=== PATIENT | female | born 1950 | race Caucasian/White ===

== ENCOUNTER → 2024-06-20 08:56 | Outpatient (REF) | payer OTHER, MEDICARE, SELFPAY | LOC: RAD 08:56 | PROVIDERS: ATTENDING PHYSICIAN Nurse Practitioner Adult Health; FAMILY PHYSICIAN Physician Assistant | DX: D75.839 Thrombocytosis, unspecified (principal); E83.10 Disorder of iron metabolism, unspecified | CPT/HCPCS: 76700 ==

== ENCOUNTER → 2024-07-06 18:33 | Outpatient (REF) | payer OTHER, MEDICARE, SELFPAY | LOC: WDC 18:33 | PROVIDERS: ATTENDING PHYSICIAN Physician Assistant | DX: Z12.31 Encounter for screening mammogram for malignant neoplasm of breast (principal) | CPT/HCPCS: 77063; 77067 ==

== ENCOUNTER 2025-05-28 15:53 | Inpatient (IN) | payer OTHER, MEDICARE, SELFPAY ==
[2025-05-28] VITALS (8 sets, daily range): BP systolic 102–150; BP diastolic 46–78; BMI 27.3; BMI 26.0
--- NOTE | 2025-05-28 12:40 | ED.GENMED ---
History of Present Illness
<Joy Conway PA-C - Last Filed: 05/28/25 23:12>
General
Chief Complaint: Breathing Problem
Source: patient
Exam Limitations: none
Time Seen by Provider: 05/28/25 12:07
Nursing documentation reviewed up to this point in time: agreed with
History of Present Illness
History of Present Illness:
Patient is a 74-year-old female with history of type 2 diabetes on oral agents, hyperlipidemia who presents to the emergency department with exertional shortness of breath. Patient states she has been experiencing progressively worsening exertional
dyspnea over the past week. At first it seemed mild however now she is unable to walk very short distances without feeling extremely winded. She denies any associated chest or back pain. She does report very minimal dry cough. No fevers,
productive cough, hemoptysis. No lower extremity swelling or pain. She has not had any episodes of syncope
No history of similar symptoms.
She denies any recent travel or recent surgeries. No personal or family history of blood clots clotting disorders.
Review of Systems
<Joy Conway PA-C - Last Filed: 05/28/25 23:12>
Review of Systems
Allergies reviewed?: Yes
All Other Systems: ROS reviewed and negative except as documented in HPI and ROS
Phy Exam
<Joy Conway PA-C - Last Filed: 05/28/25 23:12>
Physical Exam
Physical Exam:
Vitals: Tachycardic on arrival. O2 91% on room air
General: Patient is laying in bed comfortably in no respiratory distress
Skin: Warm and dry, no rashes or lesions
Head: Normocephalic, atraumatic
Eyes: Sclera nonicteric.
Throat: Protecting airway
Neck: Normal ROM, no cervical spine tenderness, no meningismus
Cardiac: Regular rate and rhythm, no murmurs.
Pulm: Normal respiratory effort at rest. Lungs clear
Abdomen: Abdomen soft and nontender
Extremities: No evidence of cyanosis or edema. 2+ palpable DP pulses bilaterally
Neuro: AAOx3. Grossly intact.
Psychiatric: Normal affect.
Scores
<Joy Conway PA-C - Last Filed: 05/28/25 23:12>
Heart Failure Risk
Heart Failure Risk Score: Not Applicable
Course
<Joy Conway PA-C - Last Filed: 05/28/25 23:12>
Orders/Labs/Results
Orders:
Orders
05/28/25 Lunch
Cholesterol Lowering
At Your Request: Full Participation
Cholesterol Lowering: Sodium, 2 Gram
05/28/25 11:49
EKG [Electrocardiogram (*1)] Urgent
Reason for Study: Shortness of Breath
EKG- Treatment ONCE
05/28/25 12:12
CR Chest - 2 Views Urgent
Comment:
Reason For Exam: exertional SOB
05/28/25 12:39
COVID-19 Antigen Urgent
Source: Nasal Swab
Complete Blood Count/With Diff Urgent
Comprehensive Metabolic Panel Urgent
D-Dimer Urgent
NT-proBNP Urgent
PTT Urgent
Comment: ADDON
TSH Reflex To Free T4 Urgent
Comment: ADD ON
Troponin I Urgent
Influenza A+B Rapid Molecular Urgent
NICOLASA Source: Nasal Swab
Specimen Description:
05/28/25 12:52
Add On- LAB Urgent
Tests Added?: TSH w/ reflex to T4
05/28/25 13:06
CT Chest PE Study Urgent
Comment:
Reason For Exam: Exertional dyspnea, hypoxia
05/28/25 13:56
Electrocardiogram (*1) Urgent
Reason for Study: Shortness of Breath
EKG- Treatment ONCE
05/28/25 14:02
0.9% Sodium Chloride 1000 ml [Nss] 1,000 ml IV BOLUS
05/28/25 14:42
Heparin 6,000 units IV NOW STA
Nursing to Place Non Medication Order As Directed
Physician Order: PTT 6 hours after initial start of Heparin infusion
Above order entered?: Yes
05/28/25 14:45
Heparin 64541 Units/250 ml 25,000 units in 250 ml IV PER PROTOCOL
Weight to be used for heparin protocol in kilograms (kg):: 74.4
Protocol:: DVT/PE
PTT Goal Range to be used:: PTT 73 to 111 seconds
Order type:: Initial
INITIAL Infusion Dose (UNITS/KG/hr) & then follow protocol:: 18 units/kg/hr
Infusion Dose in UNITS/hr & then follow protocol (UNITS/hr):: 1,300
INFUSION RATE in mL/hr & then follow protocol (mL/hr):: 13
For DVT/PE algorithm, re-bolus for low PTT?: Yes
PTT less than or equal to 64 seconds:: Re-bolus 80 units/kg (max 10,000units). Increase by 300 units/hr
(+ 3mL/hr)
PTT 64.1 to 72.9 seconds:: Re-bolus 40 units/kg (max 5,000 units). Increase by 200 units/hr
(+ 2mL/hr)
PTT 73 to 111 seconds:: Target Range. No change in rate.
PTT 111.1 to 130.9 seconds:: Decrease rate by 200 units/hr (- 2 mL/hr)
PTT 131 to 199.9 seconds:: HOLD for 1 hr. Then decrease by 200 units/hr (- 2mL/hr)
PTT greater than or equal to 200 seconds:: HOLD for 2 hrs & Notify Provider. Then decrease by 300 units/hr
(- 3mL/hr)
Lab follow-up:: Each change, PTT q6h until 2 consecutive are therapeutic. Then
PTT daily.
05/28/25 15:02
Add On- LAB Urgent
Tests Added?: PTT
05/28/25 15:13
Heparin 6,000 units IV PRN PRN
05/28/25 15:14
Heparin 3,000 units IV PRN PRN
05/28/25 15:27
Admit/Transfer Patient As Directed
Co-Sign Provider:
Level of Care: Inpatient admission
Assign to:: IMU- Intermediate Care
Physician / Group: [email or web address]
Diagnosis: acute PE
Reason for Hospitalization: acute segmental distal PE, CT suggest RHS
Expected length of stay greater than two midnights?: Yes
ELOS- Estimated Length of Stay in days: 3
I certify the patient meets the requirements for IP care: Yes
05/28/25 15:29
Code Status As Directed
Resuscitation Status: Full Code
05/28/25 18:22
Acetaminophen [Tylenol] 650 mg PO Q6HPRN PRN mild pain
Polyethylene Glycol Powder [Miralax] 17 grams PO DAILYPRN PRN
Rosuvastatin Calcium [Crestor] 5 mg PO QPM
05/28/25 18:22
Echo 2D MMode Color/Doppler Routine
Reason for Study: pulmonary embolism
IRAD CONSULT Routine
Consulting Provider: Brendan Thomas
Was physician already notified: Yes
Procedure being ordered, including laterality if applicable: PERT alert
Acknowledgement that appropriate orders are entered: Yes
Local Operator Consult Routine
Consulting Provider: Hallie Reddy
Was physician already notified: Yes
Reason for consult: PERT alert
Activity As Directed
Activity Level: With Assistance
Activity As Directed
Activity Level: With Assistance
Bladder Scan As Directed
Follow Bladder Retention/Intermittent Cath Algorithm?: Yes
Frequency: Per Retention Algorithm
Comment: as per intermittent urinary catheter algorithm
Bladder Scan As Directed
Follow Bladder Retention/Intermittent Cath Algorithm?: Yes
Frequency: Per Retention Algorithm
Comment: as per intermittent urinary catheter algorithm
Bladder Scan As Directed
Follow Bladder Retention/Intermittent Cath Algorithm?: Yes
PRN if no void in __ hours: 6
Frequency: Per Retention Algorithm
If Bladder Scan Result >: 400
then:: Straight cath
Bladder Scan As Directed
Follow Bladder Retention/Intermittent Cath Algorithm?: Yes
PRN if no void in __ hours: 6
Frequency: Per Retention Algorithm
If Bladder Scan Result >: 400
then:: Straight cath
Intake/ Output As Directed
Frequency: Per unit guidelines
Intake/ Output As Directed
Frequency: Per unit guidelines
Straight Cath As Directed
Frequency: Per Retention Algorithm
Additional Instructions: as per intermittent urinary catheter algorithm
Straight Cath As Directed
Frequency: Per Retention Algorithm
Additional Instructions: as per intermittent urinary catheter algorithm
Straight Cath As Directed
Frequency: Per Retention Algorithm
Additional Instructions: straight cath as needed per acute urinary retention algorithm for 24 hrs
Additional Instructions: for bladder scan greater than 400 mL
Straight Cath As Directed
Frequency: Per Retention Algorithm
Additional Instructions: straight cath as needed per acute urinary retention algorithm for 24 hrs
Additional Instructions: for bladder scan greater than 400 mL
Vital Signs As Directed
Frequency: Per unit guidelines
Vital Signs As Directed
Frequency: Per unit guidelines
05/28/25 18:30
Fenofibrate 145 [Tricor] 145 mg PO QPM
05/28/25 18:39
Troponin I Routine
Comment: q6h till peak
05/28/25 21:44
PTT Urgent
Comment: 6 hour for heparin
05/29/25 08:00
Sertraline HCl [Zoloft] 50 mg PO DAILY
Abnormal Lab Results
05/28/25
12:39
Plt Count 465 H 10^3/uL
(130-400)
MPV 11.6 H fL
(7.4-10.4)
Absolute Lymphs (auto) 1.1 L 10^3/uL
(1.2-3.4)
Lymphocytes % 15.3 L %
(20.5-51.1)
D-Dimer 1.69 H ug/mlFEU
(0.00-0.50)
Glucose 119 H mg/dl
(70-99)
Troponin I 0.464 H* ng/ml
05/28/25 12:39
05/28/25 12:39
Vital Signs
Initial and Last Documented VS:
Initial Vital Signs
Temp Pulse Resp BP Pulse Ox
98.2 F 125 24 148/78 89
05/28/25 11:45 05/28/25 11:45 05/28/25 11:45 05/28/25 11:45 05/28/25 11:45
Last Documented Vital Signs
Temp Pulse Resp BP Pulse Ox
97.4 F 93 16 141/72 99
05/28/25 19:00 05/28/25 22:45 05/28/25 22:45 05/28/25 22:00 05/28/25 22:45
<Brenda Banks MD - Last Filed: 05/28/25 13:59>
Orders/Labs/Results
Orders:
Orders
05/28/25 Lunch
Cholesterol Lowering
At Your Request: Full Participation
Cholesterol Lowering: Sodium, 2 Gram
05/28/25 11:49
EKG [Electrocardiogram (*1)] Urgent
Reason for Study: Shortness of Breath
EKG- Treatment ONCE
05/28/25 12:12
CR Chest - 2 Views Urgent
Comment:
Reason For Exam: exertional SOB
05/28/25 12:39
COVID-19 Antigen Urgent
Source: Nasal Swab
Complete Blood Count/With Diff Urgent
Comprehensive Metabolic Panel Urgent
D-Dimer Urgent
NT-proBNP Urgent
PTT Urgent
Comment: ADDON
TSH Reflex To Free T4 Urgent
Comment: ADD ON
Troponin I Urgent
Influenza A+B Rapid Molecular Urgent
NICOLASA Source: Nasal Swab
Specimen Description:
05/28/25 12:52
Add On- LAB Urgent
Tests Added?: TSH w/ reflex to T4
05/28/25 13:06
CT Chest PE Study Urgent
Comment:
Reason For Exam: Exertional dyspnea, hypoxia
05/28/25 13:56
Electrocardiogram (*1) Urgent
Reason for Study: Shortness of Breath
EKG- Treatment ONCE
05/28/25 14:02
0.9% Sodium Chloride 1000 ml [Nss] 1,000 ml IV BOLUS
05/28/25 14:42
Heparin 6,000 units IV NOW STA
Nursing to Place Non Medication Order As Directed
Physician Order: PTT 6 hours after initial start of Heparin infusion
Above order entered?: Yes
05/28/25 14:45
Heparin 22202 Units/250 ml 25,000 units in 250 ml IV PER PROTOCOL
Weight to be used for heparin protocol in kilograms (kg):: 74.4
Protocol:: DVT/PE
PTT Goal Range to be used:: PTT 73 to 111 seconds
Order type:: Initial
INITIAL Infusion Dose (UNITS/KG/hr) & then follow protocol:: 18 units/kg/hr
Infusion Dose in UNITS/hr & then follow protocol (UNITS/hr):: 1,300
INFUSION RATE in mL/hr & then follow protocol (mL/hr):: 13
For DVT/PE algorithm, re-bolus for low PTT?: Yes
PTT less than or equal to 64 seconds:: Re-bolus 80 units/kg (max 10,000units). Increase by 300 units/hr
(+ 3mL/hr)
PTT 64.1 to 72.9 seconds:: Re-bolus 40 units/kg (max 5,000 units). Increase by 200 units/hr
(+ 2mL/hr)
PTT 73 to 111 seconds:: Target Range. No change in rate.
PTT 111.1 to 130.9 seconds:: Decrease rate by 200 units/hr (- 2 mL/hr)
PTT 131 to 199.9 seconds:: HOLD for 1 hr. Then decrease by 200 units/hr (- 2mL/hr)
PTT greater than or equal to 200 seconds:: HOLD for 2 hrs & Notify Provider. Then decrease by 300 units/hr
(- 3mL/hr)
Lab follow-up:: Each change, PTT q6h until 2 consecutive are therapeutic. Then
PTT daily.
05/28/25 15:02
Add On- LAB Urgent
Tests Added?: PTT
05/28/25 15:13
Heparin 6,000 units IV PRN PRN
05/28/25 15:14
Heparin 3,000 units IV PRN PRN
05/28/25 15:27
Admit/Transfer Patient As Directed
Co-Sign Provider:
Level of Care: Inpatient admission
Assign to:: IMU- Intermediate Care
Physician / Group: [email or web address]
Diagnosis: acute PE
Reason for Hospitalization: acute segmental distal PE, CT suggest RHS
Expected length of stay greater than two midnights?: Yes
ELOS- Estimated Length of Stay in days: 3
I certify the patient meets the requirements for IP care: Yes
05/28/25 15:29
Code Status As Directed
Resuscitation Status: Full Code
05/28/25 18:22
Acetaminophen [Tylenol] 650 mg PO Q6HPRN PRN mild pain
Polyethylene Glycol Powder [Miralax] 17 grams PO DAILYPRN PRN
Rosuvastatin Calcium [Crestor] 5 mg PO QPM
05/28/25 18:22
Echo 2D MMode Color/Doppler Routine
Reason for Study: pulmonary embolism
IRAD CONSULT Routine
Consulting Provider: Brendan Thomas
Was physician already notified: Yes
Procedure being ordered, including laterality if applicable: PERT alert
Acknowledgement that appropriate orders are entered: Yes
Local Operator Consult Routine
Consulting Provider: Hallie Reddy
Was physician already notified: Yes
Reason for consult: PERT alert
Activity As Directed
Activity Level: With Assistance
Activity As Directed
Activity Level: With Assistance
Bladder Scan As Directed
Follow Bladder Retention/Intermittent Cath Algorithm?: Yes
Frequency: Per Retention Algorithm
Comment: as per intermittent urinary catheter algorithm
Bladder Scan As Directed
Follow Bladder Retention/Intermittent Cath Algorithm?: Yes
Frequency: Per Retention Algorithm
Comment: as per intermittent urinary catheter algorithm
Bladder Scan As Directed
Follow Bladder Retention/Intermittent Cath Algorithm?: Yes
PRN if no void in __ hours: 6
Frequency: Per Retention Algorithm
If Bladder Scan Result >: 400
then:: Straight cath
Bladder Scan As Directed
Follow Bladder Retention/Intermittent Cath Algorithm?: Yes
PRN if no void in __ hours: 6
Frequency: Per Retention Algorithm
If Bladder Scan Result >: 400
then:: Straight cath
Intake/ Output As Directed
Frequency: Per unit guidelines
Intake/ Output As Directed
Frequency: Per unit guidelines
Straight Cath As Directed
Frequency: Per Retention Algorithm
Additional Instructions: as per intermittent urinary catheter algorithm
Straight Cath As Directed
Frequency: Per Retention Algorithm
Additional Instructions: as per intermittent urinary catheter algorithm
Straight Cath As Directed
Frequency: Per Retention Algorithm
Additional Instructions: straight cath as needed per acute urinary retention algorithm for 24 hrs
Additional Instructions: for bladder scan greater than 400 mL
Straight Cath As Directed
Frequency: Per Retention Algorithm
Additional Instructions: straight cath as needed per acute urinary retention algorithm for 24 hrs
Additional Instructions: for bladder scan greater than 400 mL
Vital Signs As Directed
Frequency: Per unit guidelines
Vital Signs As Directed
Frequency: Per unit guidelines
05/28/25 18:30
Fenofibrate 145 [Tricor] 145 mg PO QPM
05/28/25 18:39
Troponin I Routine
Comment: q6h till peak
05/28/25 21:44
PTT Urgent
Comment: 6 hour for heparin
05/29/25 08:00
Sertraline HCl [Zoloft] 50 mg PO DAILY
Abnormal Lab Results
05/28/25
12:39
Plt Count 465 H 10^3/uL
(130-400)
MPV 11.6 H fL
(7.4-10.4)
Absolute Lymphs (auto) 1.1 L 10^3/uL
(1.2-3.4)
Lymphocytes % 15.3 L %
(20.5-51.1)
D-Dimer 1.69 H ug/mlFEU
(0.00-0.50)
Glucose 119 H mg/dl
(70-99)
Troponin I 0.464 H* ng/ml
05/28/25 12:39
05/28/25 12:39
Vital Signs
Initial and Last Documented VS:
Initial Vital Signs
Temp Pulse Resp BP Pulse Ox
98.2 F 125 24 148/78 89
05/28/25 11:45 05/28/25 11:45 05/28/25 11:45 05/28/25 11:45 05/28/25 11:45
Last Documented Vital Signs
Temp Pulse Resp BP Pulse Ox
97.4 F 93 16 141/72 99
05/28/25 19:00 05/28/25 22:45 05/28/25 22:45 05/28/25 22:00 05/28/25 22:45
<Joy Conway PA-C - Last Filed: 05/28/25 23:12>
MDM/Problems Addressed
Differential Diagnosis Includes:
Not limited to: Congestive heart failure, acute coronary syndrome, pulmonary embolism, pleural effusion, pneumothorax, viral illness, anemia, malignancy, etc.
MDM/Problems Addressed:
74-year-old female with one week of exertional dyspnea. No associated exertional chest pain, fever, or productive cough. Patient is tachycardic, hypoxic on arrival however normotensive. On exam, she appears in no distress at rest. Her lungs are
clear. No pitting edema or evidence of DVT on exam.
Differential as above. Will check basic labs, cardiac enzymes, pro-BNP. Will check d-dimer and chest x-ray. Will check viral studies.
Her EKG reveals sinus tachycardia without evidence of acute ischemic changes.
Update: basic labs unremarkable. Her hemoglobin is normal. Her d-dimer is elevated, as well as troponin. Patient was immediately sent for a CT PE study.
Update: CT PE study reveals extensive bilateral pulmonary emboli with associated right heart strain.
A PERT alert was called.
Patient started on heparin bolus/drip in emergency department. She remains borderline tachycardic on 3 L supplemental O2. Her blood pressure has remained stable.
Patient will require admission for further management. She was accepted to the hospital service. Both pulmonology and interventional radiology aware.
Chronic conditions affecting care:
N/A
Acute Exacerbation and/or Progression of Chronic Illness:
N/A
<Joy Conway PA-C - Last Filed: 05/28/25 23:12>
*Radiology
Radiology exam reviewed: radiology read reviewed
*Pulse Oximetry
SaO2: 89
Oxygen Mode of Delivery: Room air
Patient hypoxic: yes
*EKG
Interpreted by ED Provider?: Yes
EKG Intrepretation Date: 05/28/25
Interpretation: abnormal
Comparison EKG: no comparison EKG present
Heart Rate: 114
Rate: tachycardiac
Rhythm: sinus
Twining: normal axis
Interval: normal QT interval
QRS Pattern: normal QRS
Ischemia: no ischemia
*Production Supply Equipment Tender Interpretation
Rate: tachycardiac
Interpretation: abnormal
Heart Rate: 107
Rhythm: sinus
*Critical Care Note
Total Time (30-74mins, 75-104mins- exclusive of procedures): 35
comment:
Critical care statement: A total of 35 minutes of critical care time was provided for this patient. This includes management of unstable vital signs, evaluation of the patient at bedside, reviewing the patient's pertinent medical records, discussion
with consultants, review of old EKGs and review of pertinent medical records. This time with separate from time utilized to perform the aforementioned documented procedures
<Joy Conway PA-C - Last Filed: 05/28/25 23:12>
Patient Management
Discussion with other providers: Hospitalist, Atomic Physics Teacher (Case discussed with pulmonology and interventional radiology) and Radiologist
ED Attending Note
<Joy Conway PA-C - Last Filed: 05/28/25 23:12>
-
Portions of this chart may have been created with voice recognition software.� Occasional wrong word or��sound alike� substitutions may have occurred due to the inherent limitations of voice recognition software.
<Brenda Banks MD - Last Filed: 05/28/25 13:59>
ED Attending Note
Patient seen and examined by attending physician: Yes
I performed the substantive portion of visit, reviewed & personally made and approve the management plan that is documented in note by myself or RAVINDER.: Yes
ED Attending Note:
Patient evaluated by me after she got up to go the bathroom. Patient is visibly tachypneic and slightly clammy. She is fully awake alert and speaking in full sentences, however. Her lungs are completely clear. Patient has no edema. Clinical
picture is concerning for possible PE given elevated D-dimer, elevated troponin, without chest pain, and tachycardia.
Discharge Plan
Departure
Patient Disposition: Admit
Date of Disposition: 05/28/25
Time of Disposition: 14:43
Presentation/result/management discussed w/ accepting MD/DO: Hospitalist
Discharge Problem:
Bilateral pulmonary embolism
Interventions
Interventions:
*Risk Screen - Suicide Last Done: 05/28/25 11:45
*General Assessment Last Done: 05/28/25 11:45
*Neglect/Abuse Screening Last Done: 05/28/25 11:45
*ED COVID-19 Vaccine History Last Done: 05/28/25 12:27
*ED Influenza Vaccine History Last Done: 05/28/25 12:27
[facility] Fall Risk Assessment Tool Last Done: 05/28/25 13:29
*Nursing Disposition Last Done: 05/28/25 18:10
ED- Cardiac Assessment Last Done: 05/28/25 12:27
ED- Pulmonary Assessment Last Done: 05/28/25 17:28
Discharge Date and Time
Discharge Date/Time: 05/28/25 18:10
[2025-05-28 12:56] LABS: Hematocrit 39.6 % (37.0-47.0); Hemoglobin 13.4 g/dL (12.0-16.0); Mean Corp Hgb Conc. 33.8 g/dL (33.0-37.0); Mean Corpuscular Volume 87.8 fL (81.0-99.0); Nucleated Red Blood Cells % 0 %; Platelet Count 465 10^3/uL (130-400); Red Cell Dist. Width 13.3 % (11.5-14.5)
[2025-05-28 13:02] LABS: D-Dimer 1.69 ug/mlFEU (0.00-0.50)
[2025-05-28 13:04] LABS: ALT (SGPT) 18 U/L (0-35); AST (SGOT) 24 U/L (14-36); Albumin 4.1 g/dl (3.5-5.0); Alkaline Phosphatase 40 U/L (38-126); Blood Urea Nitrogen 16 mg/dl (7-17); Calcium 9.4 mg/dl (8.4-10.2); Carbon Dioxide 25 mmol/L (22-30); Chloride 106 mmol/L (98-107); Estimated Creatinine Clearance 63 ml/min; Glucose 119 mg/dl (70-99); Potassium 4.3 mmol/L (3.5-5.1); Sodium 137 mmol/L (135-145); Total Protein 6.5 g/dl (6.3-8.2); eGFR > 60.00
[2025-05-28 13:16] LABS: COVID-19 Antigen Negative (Negative)
[2025-05-28 13:17] LABS: Troponin I 0.464 ng/ml
[2025-05-28] MEDS: NSS 1000 IV (14:25)
--- NOTE | 2025-05-28 15:06 | CON.PUL ---
Consultation
Consultation Request
Date/Time Consultation Requested: 05/28/25
Date/Time Consultation Performed: 05/28/25
Performing Provider: Maureen
Reason for Consultation: PE
Medical History
-
History of Present Illness:
Patient is a 74-year-old female with previous history of diabetes, hyperlipidemia presenting with exertional shortness of breath over the past week. She has had progressive decline in her function, ambulation distance. She had noted left lower
extremity knee swelling and pain several weeks prior to admission. 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
CT demonstrating bilateral segmental PE. She is evaluated via PERT alert and not deemed a candidate for catheter directed therapy or thrombectomy. She will be admitted to IMU and is on a heparin drip.
Denies any prior known history of lung disease, former smoker quit in her 40s. Denies any family history of lung disease or VTE.
Past Medical History
Past Medical History: Other (see list below)
Social History
Tobacco: Former Smoker
Alcohol: None
Drug: None
Allergies / Home Medications
Allergies
Allergy/AdvReac Type Severity Reaction Status Date / Time
No Known Allergies Allergy Unverified 05/28/25 11:48
Home Medications
�Medication �Instructions �Recorded �Confirmed �Last Taken �Type
acetaminophen 325 mg tablet 650 mg PO Q6HPRN PRN mild pain 05/28/25 05/28/25 05/27/25 History
(Tylenol)
calcium carbonate 500 mg PO DAILY Supplement 05/28/25 05/28/25 05/27/25 History
cholecalciferol (vitamin D3) 25 25 mcg PO DAILY Supplement 05/28/25 05/28/25 05/27/25 History
mcg (1,000 unit) tablet (Vitamin
D3)
fenofibric acid (choline) 135 mg 135 mg PO QPM High Cholesterol 05/28/25 05/28/25 05/27/25 History
capsule,delayed release
metformin 500 mg tablet 500 mg PO BID Diabetes 05/28/25 05/28/25 05/28/25 History
omega 8-mqn-hcy-fish oil 1,000 mg 1 cap PO DAILY Supplement 05/28/25 05/28/25 05/27/25 History
(120 mg-180 mg) capsule (Fish Oil)
rosuvastatin 5 mg tablet (Crestor) 5 mg PO QPM High Cholesterol 05/28/25 05/28/25 05/27/25 History
sertraline 50 mg tablet 50 mg PO DAILY Mental 05/28/25 05/28/25 05/28/25 History
Health/Anxiety
therapeutic multivitamin 1 tab PO DAILY Supplement 05/28/25 05/28/25 05/27/25 History
Review of Systems
-
History Source: Patient
All other systems: Negative unless noted
Vitals / Labs / Diagnostic Testing
Vital Signs
Temp Pulse Resp BP Pulse Ox
98.2 F 109 18 148/78 93
05/28/25 11:45 05/28/25 13:30 05/28/25 13:30 05/28/25 11:45 05/28/25 13:30
Lab Data
05/28/25 12:39
05/28/25 12:39
Microbiology
05/28/25 12:39 Nasal Swab Influenza Types A & B ([facility]ON) - Final
Negative for Influenza A & B, NAAT
Negative results must be combined with clinical observations
and patient history.
Nucleic Acid Amplification test (NAAT)performed on the
[employer] ID NOW platform.
Diagnostic Testing:
Physical Exam
-
HEENT: Normocephalic, Anicteric and Moist Mucous Membranes
Cardiovascular: S1/S2 and Regular Rhythm
Respiratory: Clear and Non-Labored Respirations
GI: Soft, Non Distended and Non Tender
Neurology: Awake, Alert, Oriented and No Motor Deficits
Skin: Warm, Dry and Good Color
General: Comfortable and Other (NAD)
Assessment
-
Patient is a 74-year-old female with previous history of diabetes, hyperlipidemia presenting with exertional shortness of breath over the past week. She has had progressive decline in her function, ambulation distance. She had noted left lower
extremity knee swelling and pain several weeks prior to admission. 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
CT demonstrating bilateral segmental PE. She is evaluated via PERT alert and not deemed a candidate for catheter directed therapy or thrombectomy. She will be admitted to IMU and is on a heparin drip. We are consulted for evaluation.
Acute bilateral PE, likely provoked
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
Elevated troponin
Sinus tachycardia, mild
Conditions present prior to admission
Former smoker, half pack per day for 24 years quit in her 40s
Hyperlipidemia
Prediabetic
Mini eye stroke
Overweight
Eczema
Plan
No significant hypoxemia noted on arrival, O2 lissette 92%
She is placed on supplemental oxygen which can likely be weaned to off
Denies any prior known history of lung disease, former smoker quit in her 40s.
Denies any family history of lung disease or VTE.
CXR/CT obtained indicating bilateral segmental PE
She is placed on IV heparin
PERT alert called without need for intervention
Denies prior history of VTE
This is likely provoked based on her history
We discussed treatment of PE and long-term anticoagulation
Given lower extremity swelling, will obtain left lower extremity duplex
Given elevated troponin and tachycardia, will obtain echo
Can monitor on telemetry otherwise
Smoking history noted--former, quit over 30 years ago
She could be at risk for lung disease but is not at risk for lung malignancy
Will need outpatient pulmonary evaluation in our office for PFTs and 6MWT
Reviewed with patient
This can be done at discharge
Reviewed plan of care with patient and her daughter at bedside
We will follow
Diagnostic Data
Chest X-Ray: 05/28/25-No acute cardiopulmonary process.
CT Scan: CHEST 05/28/25-There is extensive pulmonary embolism involving all bilateral lobar and most segmental pulmonary arteries and bilateral lower lobe subsegmental pulmonary arteries. Pulmonary embolism also extends into the distal aspect of the
right main pulmonary artery.
Branching Order Level of the Most Proximal Level of Pulmonary Embolus: Main pulmonary artery.
Echo:
PFT's:
Reports and relevant images were personally reviewed.
Total time spent on this consultation __55__ minutes which includes review of history, physical exam, medications, laboratory data, personal review of imaging, extensive review of outpatient records, discussion with care team and respiratory therapy.
--- NOTE | 2025-05-28 15:09 | HPS.HSE ---
Family Physician
-
Family Physician: Sinai Zuleta
Chief Complaint
-
exertional shortness of breath
History of Present Illness
73F
PMHX: T2DM, hyperlipidemia seen at ER
- pw exertional shortness of breath- progressively worsening over the past week.
- now she is unable to walk very short distances without feeling extremely winded.
- denies any associated chest or back pain. She does report very minimal dry cough. No fevers, productive cough, hemoptysis. No lower extremity swelling or pain. She has not had any episodes of syncope
No history of similar symptoms.
She denies any recent travel or recent surgeries. No personal or family history of blood clots clotting d
Medical History
Past Medical History
Past Medical History: Reports Hypercholesterolemia and Psychiatric (anxiety )
Past Surgical History: Reports Other
Social History
Tobacco: Non-smoker
Alcohol: None
Living: With Family
Family History
Family History: Not pertinent
Allergies / Home Medications
Allergies reflects when Allergies were last updated in [facility].
Home Medications with original date entered in [facility]
Allergy/Medication List:
Allergies
Allergy/AdvReac Type Severity Reaction Status Date / Time
No Known Allergies Allergy Unverified 05/28/25 11:48
Home Medications
acetaminophen 325 mg tablet (Tylenol) 650 mg PO Q6HPRN PRN mild pain 05/28/25
calcium carbonate 500 mg PO DAILY Supplement 05/28/25
cholecalciferol (vitamin D3) 25 mcg (1,000 unit) tablet (Vitamin D3) 25 mcg PO DAILY Supplement 05/28/25
fenofibric acid (choline) 135 mg capsule,delayed release 135 mg PO QPM High Cholesterol 05/28/25
metformin 500 mg tablet 500 mg PO BID Diabetes 05/28/25
omega 9-tgt-fqn-fish oil 1,000 mg (120 mg-180 mg) capsule (Fish Oil) 1 cap PO DAILY Supplement 05/28/25
rosuvastatin 5 mg tablet (Crestor) 5 mg PO QPM High Cholesterol 05/28/25
sertraline 50 mg tablet 50 mg PO DAILY Mental Health/Anxiety 05/28/25
therapeutic multivitamin 1 tab PO DAILY Supplement 05/28/25
Review of Systems
-
Constitutional: Reports No Symptoms
EENT: Reports No Symptoms
Respiratory: Reports See HPI and Trouble Breathing
Cardiac: Reports No Symptoms
Abdomen/GI: Reports No Symptoms
: Reports No Symptoms
Musculoskeletal: Reports No Symptoms
Skin: Reports No Symptoms
Neurological: Reports No Symptoms
Endocrine: Reports No Symptoms
Hematologic/Lymphatic: Reports No Symptoms
Psych: Reports No Symptoms
Physical Exam
Vital Signs
Vital Signs
Temp Pulse Resp BP Pulse Ox
98.2 F 109 18 148/78 93
05/28/25 11:45 05/28/25 13:30 05/28/25 13:30 05/28/25 11:45 05/28/25 13:30
Physical Exam
General: Well Developed, Well Nourished and No Apparent Distress
HEENT: NormoCephalic, Moist mucous membranes and Atraumatic
Respiratory: Clear
Cardiac: S1/S2 and Regular Rhythm; No Murmur or Rub
GI: Soft, Non Tender, Non Distended and Normal Bowel Sounds; No Organomegaly
Rectal: Deferred by Provider
Musculoskeletal: No Clubbing, No Cyanosis and No Edema
Skin: No Rash
Neuro: Nonfocal/grossly intact
Laboratory Results
-
05/28/25 12:39
05/28/25 12:39
Laboratory Results
Total Bilirubin 0.4 mg/dl (0.2-1.3) 05/28/25 12:39
AST 24 U/L (14-36) 05/28/25 12:39
ALT 18 U/L (0-35) 12/07/25 12:39
Alkaline Phosphatase 40 U/L (38-126) 05/28/25 12:39
Troponin I 0.464 ng/ml H* 05/28/25 12:39
Data Reviewed
-
CT Scan: Report Reviewed by me
Medical Tests (Nuc Med, Echo, EKG etc): Report Reviewed by me
Lab Data: Labs Reviewed by me
Impression/Plan
-
Vital Signs
Temp Pulse Resp BP Pulse Ox
98.2 F 109 18 148/78 93
05/28/25 11:45 05/28/25 13:30 05/28/25 13:30 05/28/25 11:45 05/28/25 13:30
Labs
05/28/25 05/28/25
12:39 14:42
WBC 7.3
Hgb 13.4
Plt Count 465 H
APTT Pending
D-Dimer 1.69 H
Creatinine 0.8
eGFR > 60.00
Troponin I 0.464 H*
Vsf-B-Jaxchxgegar Pept 301
EKG
SINUS TACHYCARDIA
OTHERWISE NORMAL ECG
WHEN COMPARED WITH ECG OF 28-May-2025 11:54,
NO SIGNIFICANT CHANGE WAS FOUND
[facility] PE protocol
1. Extensive bilateral pulmonary emboli.
2. CT evidence suggestive of right heart strain.
CXR
No acute cardiopulmonary process.
NO PRIOR hospitalist admission:
ASSESSMENT & PLAN
PERT alert for Acute extensive bilateral PE - segmental and too distal per Pul & IR
Provoked PE due to sedentary life style
CTC suggest RHS - associated ST , elevated DD
- Not IR candidate for thrombectomy
- Heparin gtt
- ECHO in AM
- IMU
- Pul and IR consulted
Elevated TPNI due to NIMI due to acute PE
- Trend TPNI
- await TTE evaluation
T2DM
- hold Metformin
- add ISS low
HLD
- on CANDY PACKER Crestor and Choline
Anxiety /Depression
- on CANDY PACKER Sertraline
DVT Px: Heparin gtt
Full code
IMU
[2025-05-28] MEDS: HEPARIN 25000 UNITS/250 ML IV (15:20)
[2025-05-28] MEDS: HEPARIN 6000 UNITS IV (15:21)
[2025-05-28 15:24] LABS: APTT 26.2 Sec (23.4-35.0)
--- NOTE | 2025-05-28 15:54 | CM ---
Chart reviewed and spoke with patient at ED bedside
[facility]
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
Independent
no DME
PCP Dr. Sinai Zuleta
[facility] in [place]
no hx VN nor SNF
DCP is to go home
Dtr can drive
CM will continue to follow up for any dcp needs
[2025-05-28] MEDS: TRICOR 145 MG PO (19:05)
[2025-05-28] MEDS: CRESTOR 5 MG PO (19:05)
[2025-05-28 19:09] LABS: Troponin I 1.570 ng/ml
--- NOTE | 2025-05-28 19:09 | PTCARENOTE ---
Pt arrived to unit from ED via stretcher. Stood to transfer to admitted rooms bed. AAOx3. Stating chronic 3/10 pain in left knee. SaO2 98% on 4L NC. Diminished breath sounds. Sinus tach on panel monitor. HR 100s. BP 150/69. +1 left knee edema,
B/L trace LE edema. Abdomen obese. (+) bowel sounds. Heparin gtt infusing @ 1300 units/hr. Troponin drawn and sent.
[2025-05-28 19:12] LABS: Glucose - Point of Care 119 mg/dl (70-99)
[2025-05-28 22:01] LABS: APTT 97.4 Sec (23.4-35.0)
[2025-05-29] VITALS (9 sets, daily range): BP systolic 103–151; BP diastolic 44–113
[2025-05-29 01:20] LABS: Troponin I 1.020 ng/ml
[2025-05-29 05:24] LABS: APTT 96.1 Sec (23.4-35.0)
--- NOTE | 2025-05-29 05:29 | PTCARENOTE ---
Received pt at change of shift. Family at bedside. Remains on NC at 4L with pulse ox in the mid to high 90s. Lungs CTA but diminished throughout. Heparin gtt running at 1300 units/hr. PTT x2 therapeutic. Order placed for PTT check on Thursday
morning. Resting in bed with call henley in reach.
[2025-05-29] MEDS: ZOLOFT 50 MG PO (07:39)
--- NOTE | 2025-05-29 08:10 | W.PN.HOSP.TC ---
Addendum entered and electronically signed by Sivakumar Guzmán DO 05/29/25 13:22:
Patient is in need of oxygen at 4 liters/minute via nasal cannula continuously due to pulse oximetry of 87% on room air at rest. Oxygen will help to improve hypoxemia. Patient is mobile within the home. DuoNeb therapy has been tried and is
ineffective in treating hypoxemia related symptoms. Oxygen is needed to improve symptoms.
Original Note:
Today's Communication/Plan
-
Transition to Eliquis
Echocardiogram
Check ambulatory pulse ox on room air
Assessment / Plan
Assessment / Plan
Gen-AAOx3, NAD
HEENT-NC, AT, anicteric, clear oral mm
Neck-supple
CV-reg, no M, +S1/S2
Lungs-clear B/L
Abd-soft, NT, ND
Ext-no edema
Musculoskeletal-no cyanosis, clubbing
Skin-warm and dry
Neuro-grossly non-focal
Psych-calm, cooperative
Acute hypoxic respiratory failure -due to bilateral pulmonary emboli. Currently on 4 L nasal cannula oxygen. Wean down as able.
Check ambulatory pulse ox on room air.
Acute bilateral pulmonary emboli -complicated by right heart strain. Elevated troponin.
Echocardiogram pending. Hemodynamically stable.
Left lower extremity venous Doppler ultrasound negative for DVT.
She states she is up-to-date on cancer screenings. Follows up with [facility], sees Dr. Conner for thrombocytosis. Current platelet count 465k.
Transition from IV heparin to Eliquis. Case management to look into cost.
DM 2 without hyperglycemia -hold metformin x 48 hrs given contrast exposure.
Check hemoglobin A1c.
Use low resistance NovoLog scale.
Former smoker
Hyperlipidemia -rosuvastatin.
Anxiety/depression -sertraline.
Full code
Dispo -potential discharge home later today if hemodynamically stable. Await echocardiogram. Await ambulatory pulse ox on room air.
Anticipated Discharge: Today
Subjective/Interval History
-
Date of Service: May 29, 2025
Patient seen and examined. Complaining of mild dyspnea and palpitations on exertion.
Objective Data
-
Labs:
Laboratory Results
05/28/25 05/29/25
21:44 05:03
APTT 97.4 H 96.1 H
Vital Signs:
Vital Signs
Temp Pulse Resp BP Pulse Ox
98.2 F 86 15 124/44 99
05/29/25 08:00 05/29/25 04:00 05/29/25 04:00 05/29/25 04:00 05/29/25 04:00
Review of Systems
-
History Source: Patient
All other systems: Reviewed and negative
[2025-05-29] MEDS: ELIQUIS 10 MG PO ×2 (08:39→20:27)
--- NOTE | 2025-05-29 08:47 | PTCARENOTE ---
pt aaox3. on 4lnc o2 sat 99%. states breathing feels better pt still bald[place]. able to walk to bathroom and do morning cares self. heparin gtt dc'd by MD. Evans given. pt on room air 86% for home o2 testing.
--- NOTE | 2025-05-29 08:49 | W.PN.PUL.V3 ---
Today's Communication / Plan
-
heparin drip-convert Eliquis
Assessment disorders or blood clots. She needs.
Outpatient pulmonary follow-up
Assessment
-
Patient is a 74-year-old female with previous history of diabetes, hyperlipidemia presenting with exertional shortness of breath over the past week. She has had progressive decline in her function, ambulation distance. She had noted left lower
extremity knee swelling and pain several weeks prior to admission. 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
CT demonstrating bilateral segmental PE. She is evaluated via PERT alert and not deemed a candidate for catheter directed therapy or thrombectomy. She will be admitted to IMU and is on a heparin drip. We are consulted for evaluation.
Acute bilateral PE, likely provoked
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
Elevated troponin
Sinus tachycardia, mild
Conditions present prior to admission:
Former smoker, half pack per day for 24 years quit in her 40s
Hyperlipidemia
Prediabetic
Mini eye stroke
Overweight
Eczema
Plan
Respiratory status slowly improving.
Wean supplemental option.
Assessment is just supplemental oxygen needs.
Nebulizers if needed-currently not bronchospastic.
Denies any prior known history of lung disease, former smoker quit in her 40s.
Denies any family history of lung disease or VTE.
CXR/CT obtained indicating bilateral segmental PE.
Heparin drip-convert to Eliquis
Eliquis for 3-6 months
PERT alert called without need for intervention
Denies prior history of VTE
This is likely provoked based on her history
We discussed treatment of PE and long-term anticoagulation
Echocardiogram pending
Given lower extremity swelling, will obtain left lower extremity duplex-ultrasound 05/28/25-no evidence for DVT in left lower extremity
Smoking history noted--former, quit over 30 years ago
She could be at risk for lung disease but is not at risk for lung malignancy
Will need outpatient pulmonary evaluation in our office for PFTs and 6MWT
Diagnostic Data
Chest X-Ray: 05/28/25-No acute cardiopulmonary process.
CT Scan: CHEST 05/28/25-There is extensive pulmonary embolism involving all bilateral lobar and most segmental pulmonary arteries and bilateral lower lobe subsegmental pulmonary arteries. Pulmonary embolism also extends into the distal aspect of the
right main pulmonary artery.
Branching Order Level of the Most Proximal Level of Pulmonary Embolus: Main pulmonary artery.
Subjective Data
-
Date of Service:
Date of Service: May 29, 2025
Chief Complaint: Pulmonary Follow Up, Dyspnea Follow Up and VTE Follow Up
Subjective:
Overall feels better, still has some shortness of breath, has dyspnea on exertion, no chest pain or abdominal pain.
Review of Systems
General: Other ( Per HPI)
Objective Data
Data Reviewed
Vital Signs / I&O:
Vital Signs
Temp Pulse Resp BP Pulse Ox
98.2 F 89 19 147/68 99
05/29/25 08:00 05/29/25 08:00 05/29/25 08:00 05/29/25 08:00 05/29/25 08:46
SaO2: 99
Nasal Cannula flow liters per minute: 4
Physical Exam
General: Respiratory Distress (n) and Comfortable
HEENT: Normocephalic, Anicteric and Moist Mucous Membranes
Cardiovascular: Regular Rhythm
Respiratory: Wheeze (n), Crackles (n), Rhonchi (n), Non-Labored Respirations and Accessory Resp Muscle Use (n)
GI: Soft, Non Distended and Non Tender
Neurology: Awake and No Motor Deficits
Skin: Warm, Good Color, Cyanosis (n), Jaundice (n) and Rash (n)
Labs/Micro/Reports
Lab Data
05/28/25 12:39
05/28/25 12:39
Laboratory Results
05/28/25 05/28/2525
12:39 14:42 21:44
APTT 26.2 Cancelled 97.4 H
05/29/25
05:03
APTT 96.1 H
Microbiology
05/28/25 12:39 Nasal Swab Influenza Types A & B (HUDSON) - Final
Negative for Influenza A & B, NAAT
Negative results must be combined with clinical observations
and patient history.
Nucleic Acid Amplification test (NAAT)performed on the
[employer] ID NOW platform.
[2025-05-29 09:06] LABS: Glycohemoglobin (HgbA1c) 5.5 % (4.0-5.9)
[2025-05-29 11:45] LABS: Glucose - Point of Care 139 mg/dl (70-99)
[2025-05-29 16:56] LABS: Glucose - Point of Care 113 mg/dl (70-99)
[2025-05-29] MEDS: CRESTOR 5 MG PO (17:37)
[2025-05-29] MEDS: TRICOR 145 MG PO (17:37)
--- NOTE | 2025-05-29 18:23 | CM ---
F/U: DEJON Lopez arranged Home O2 with [employer], sending all clinical, approved, and that delivered O2 tank today. Patient chose [facility] so this was arranged. DEJON then prices 2-3 anticoagulation medications- patient chose Eliquis at $600+, but was
able to get 60 pills free with 30 day free copay card. Patient is ready to dc tomorrow. PLAN: Home with [facility] plus Home O2.
[2025-05-29 22:19] LABS: Glucose - Point of Care 189 mg/dl (70-99)
[2025-05-30] VITALS (8 sets, daily range): BP systolic 109–139; BP diastolic 55–74
--- NOTE | 2025-05-30 06:29 | PTCARENOTE ---
Cared for pt overnight. No assessment changes. NSR. Denies pain. C/o sob when walking. VSS. Remains on 2LNC. Will continue to monitor.
[2025-05-30 06:48] LABS: INR 1.30; PT 16.3 Sec (11.4-14.6)
--- NOTE | 2025-05-30 07:58 | W.PN.HOSP.TC ---
Today's Communication/Plan
-
Discharge
Assessment / Plan
Assessment / Plan
Gen-AAOx3, NAD
HEENT-NC, AT, anicteric, clear oral mm
Neck-supple
CV-reg, no M, +S1/S2
Lungs-clear B/L
Abd-soft, NT, ND
Ext-no edema
Musculoskeletal-no cyanosis, clubbing
Skin-warm and dry
Neuro-grossly non-focal
Psych-calm, cooperative
Acute hypoxic respiratory failure -due to bilateral pulmonary emboli. Oxygenation improved to 2 L. We have arranged for home oxygen therapy given ongoing exertional hypoxia.
Acute bilateral pulmonary emboli -complicated by right heart strain. Elevated troponin.
Echocardiogram shows normal RV function. Hyperdynamic LV. EF 75%. Mild to moderate concentric LVH.
Left lower extremity venous Doppler ultrasound negative for DVT.
She states she is up-to-date on cancer screenings. Follows up with [facility], sees Dr. Conner for thrombocytosis. Current platelet count 465k.
Continue Eliquis, patient is accepting of the cost.
DM 2 without hyperglycemia -hold metformin x 48 hrs given contrast exposure.
Hemoglobin A1c 5.5%.
Use low resistance NovoLog scale.
Former smoker
Hyperlipidemia -rosuvastatin.
Anxiety/depression -sertraline.
Full code
Dispo -medically stable for discharge home today. Follow-up with PCP and hematology. Daggett text sent to Dr. Conner.
32 minutes spent in discharge process.
Anticipated Discharge: Today
Subjective/Interval History
-
Date of Service: May 30, 2025
Patient seen and examined. Complaining of feeling cold. Denies shortness of breath at rest.
Objective Data
-
Labs:
Laboratory Results
05/30/25
06:26
PT 16.3 H
INR 1.30
Vital Signs:
Vital Signs
Temp Pulse Resp BP Pulse Ox
99.1 F 90 15 126/73 99
05/30/25 07:40 05/30/25 06:00 05/29/25 22:00 05/30/25 06:00 05/30/25 06:00
Review of Systems
-
History Source: Patient
All other systems: Reviewed and negative
--- NOTE | 2025-05-30 08:02 | PTCARENOTE ---
Assumed care of patient this AM. Patient AAOx3. Most likely D/C to home today. Patient qualified for home o2. Patient is currently on 2L o2 via
n/c. Patient desaturated to 88% while ambulating to bathroom. Patient reported feeling short of breath. Recovered quickly to 94-95%. Call henley in reach. Will monitor.
--- NOTE | 2025-05-30 08:03 | W.DS.TRANS ---
DC Summary - Twist Packer
-
Discharge Instructions:
Discharge Diagnosis/Procedures Pulmonary emboli, hypoxia
Diet Low Cholesterol,Low Fat
Activity As tolerated
Driving Restrictions As prior to admission
Bathing Restrictions None
Instructions:
Stand-Alone Forms:
Changes to Home Medications: No
Discharge Medications:
DC Medications w/original date entered in [facility]
acetaminophen 325 mg tablet (Tylenol) 650 mg PO Q6HPRN PRN mild pain 05/28/25
calcium carbonate 500 mg PO DAILY Supplement 05/28/25
cholecalciferol (vitamin D3) 25 mcg (1,000 unit) tablet (Vitamin D3) 25 mcg PO DAILY Supplement 05/28/25
fenofibric acid (choline) 135 mg capsule,delayed release 135 mg PO QPM High Cholesterol 05/28/25
metformin 500 mg tablet 500 mg PO BID Diabetes 05/28/25
Held on 05/29/25. Instructions: Resume on 05/31/25.
omega 9-xkt-ibl-fish oil 1,000 mg (120 mg-180 mg) capsule (Fish Oil) 1 cap PO DAILY Supplement 05/28/25
rosuvastatin 5 mg tablet (Crestor) 5 mg PO QPM High Cholesterol 05/28/25
sertraline 50 mg tablet 50 mg PO DAILY Mental Health/Anxiety 05/28/25
therapeutic multivitamin 1 tab PO DAILY Supplement 05/28/25
apixaban 5 mg tablet (Eliquis) 5 mg PO BID #90 tabs 05/29/25
Home Medication Changes
Pending Results: No
[2025-05-30] MEDS: ELIQUIS 10 MG PO (08:26)
[2025-05-30] MEDS: ZOLOFT 50 MG PO (08:26)
[2025-05-30 08:53] LABS: Glucose - Point of Care 136 mg/dl (70-99)
--- NOTE | 2025-05-30 11:11 | CM ---
Patient seen at bedside in IMU. Patient has O2 tank in room. Patient daughter awaiting delivery of concentrator and then coming to roller picker patient. Patient to follow with [facility]. CM will continue to follow for discharge planning needs.
Plan; home with [facility] to follow and Home O2
--- NOTE | 2025-05-30 11:27 | W.PN.PUL.V3 ---
Today's Communication / Plan
-
Wean oxygen
Assess discharge supplemental oxygen needs
Anticoagulation oral for 3 to 6 months
Outpatient pulmonary follow-up
Assessment
-
Patient is a 74-year-old female with previous history of diabetes, hyperlipidemia presenting with exertional shortness of breath over the past week. She has had progressive decline in her function, ambulation distance. She had noted left lower
extremity knee swelling and pain several weeks prior to admission. 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
CT demonstrating bilateral segmental PE. She is evaluated via PERT alert and not deemed a candidate for catheter directed therapy or thrombectomy. She will be admitted to IMU and is on a heparin drip. We are consulted for evaluation.
Acute bilateral PE, likely provoked
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
Elevated troponin
Sinus tachycardia, mild
Conditions present prior to admission:
Former smoker, half pack per day for 24 years quit in her 40s
Hyperlipidemia
Prediabetic
Mini eye stroke
Overweight
Eczema
Plan
Respiratory status slowly improving-dyspnea on exertion slowly improving
Wean supplemental oxygen-currently on 2 L - 95% saturation
Assessment is just supplemental oxygen needs.
Nebulizers if needed-currently not bronchospastic.
Denies any prior known history of lung disease, former smoker quit in her 40s.
Denies any family history of lung disease or VTE.
CXR/CT obtained indicating bilateral segmental PE.
Heparin drip-converted to Eliquis
Eliquis for 3-6 months
PERT alert called without need for intervention
Denies prior history of VTE
This is likely provoked based on her history
We discussed treatment of PE and long-term anticoagulation
Echocardiogram 05/29/2025-EF 75%, mild to moderate left ventricular
Given lower extremity swelling, will obtain left lower extremity duplex-ultrasound 05/28/25-no evidence for DVT in left lower extremity
Smoking history noted--former, quit over 30 years ago
She could be at risk for lung disease but is not at risk for lung malignancy
Will need outpatient pulmonary evaluation in our office for PFTs and 6MWT
Diagnostic Data
Chest X-Ray: 05/28/25-No acute cardiopulmonary process.
CT Scan: CHEST 05/28/25-There is extensive pulmonary embolism involving all bilateral lobar and most segmental pulmonary arteries and bilateral lower lobe subsegmental pulmonary arteries. Pulmonary embolism also extends into the distal aspect of the
right main pulmonary artery.
Branching Order Level of the Most Proximal Level of Pulmonary Embolus: Main pulmonary artery.
Subjective Data
-
Date of Service:
Date of Service: May 30, 2025
Chief Complaint: Pulmonary Follow Up, Dyspnea Follow Up and VTE Follow Up
Subjective:
Feels better with some dyspnea and abdominal pain, still on oxygen
Review of Systems
HEENT: Other (Per HPI)
Objective Data
Data Reviewed
Vital Signs / I&O:
Vital Signs
Temp Pulse Resp BP Pulse Ox
99.1 F 85 15 118/55 95
05/30/25 07:40 05/30/25 08:00 05/29/25 22:00 05/30/25 08:00 05/30/25 08:55
Intake and Output
05/29/25 05/30/25 05/31/25
06:59 06:59 06:59
Intake Total 240 / 240
Balance 240 / 240
SaO2: 95
Nasal Cannula flow liters per minute: 2
Physical Exam
General: Respiratory Distress (n) and Comfortable
HEENT: Normocephalic, Anicteric and Moist Mucous Membranes
Cardiovascular: Regular Rhythm
Respiratory: Wheeze (n), Crackles (n), Rhonchi (n), Non-Labored Respirations and Accessory Resp Muscle Use (n)
GI: Soft, Non Distended and Non Tender
Neurology: Awake and No Motor Deficits
Skin: Warm, Good Color, Cyanosis (n), Jaundice (n) and Rash (n)
Labs/Micro/Reports
Lab Data
05/28/25 12:39
05/28/25 12:39
Laboratory Results
05/30/25
06:26
PT 16.3 H
INR 1.30
Microbiology
05/28/25 12:39 Nasal Swab Influenza Types A & B ([facility]) - Final
Negative for Influenza A & B, NAAT
Negative results must be combined with clinical observations
and patient history.
Nucleic Acid Amplification test (NAAT)performed on the
[employer] platform.
[2025-05-30 12:48] LABS: Glucose - Point of Care 93 mg/dl (70-99)
--- NOTE | 2025-05-30 14:08 | VNURNOTE ---
Chart reviewed. [facility] liaison met with patient at bedside. Explained services: intermittent, short termed, skilled. New home oxygen ordered. patient has portable tank at bedside and confirmed that concentrator was delivered to house ([employer]).
Patient agreeable to [facility], reviewed homebound criteria. She works from home. Explained with patient that she can expect a call from [facility] within a week after DC. She is agreeable.
[facility] referral accepted in [facility].
[2025-05-30 17:23] LABS: Glucose - Point of Care 83 mg/dl (70-99)
== END 2025-05-30 18:14 | disposition home health service (06) | DRG 175 ==
LOC: IMU 15:53
PROVIDERS: Physician Assistant; ADMITTING PHYSICIAN Internal Medicine; ATTENDING PHYSICIAN Hospitalist; CONSULT PHYSICIAN Internal Medicine; EMERGENCY PHYSICIAN Emergency Medicine; FAMILY PHYSICIAN Physician Assistant
DX: I26.99 Other pulmonary embolism without acute cor pulmonale (principal); J96.01 Acute respiratory failure with hypoxia; I26.94 Multiple subsegmental thrombotic pulmonary emboli without acute cor pulmonale; E11.9 Type 2 diabetes mellitus without complications; E78.00 Pure hypercholesterolemia, unspecified; R00.0 Tachycardia, unspecified; F41.9 Anxiety disorder, unspecified; F32.A Depression, unspecified; E66.3 Overweight; Z68.26 Body mass index [BMI] 26.0-26.9, adult; R79.89 Other specified abnormal findings of blood chemistry; Z11.52 Encounter for screening for COVID-19; Z79.899 Other long term (current) drug therapy; Z87.891 Personal history of nicotine dependence; Z79.84 Long term (current) use of oral hypoglycemic drugs
CPT/HCPCS: 71046; 71275; 80053; 82962; 83036; 83880; 84443; 84484; 85025; 85379; 85610; 85730; 87502; 87811; 93005; 93306; 93971; 96361; 96374; 99291; Q9967